=== PATIENT | female | born 1975 | race Asian ===

== ENCOUNTER 2024-06-25 12:41 | Emergency (ER) | payer BC ==
[~2024-06-25] VITALS: Ht 160 cm; Wt 65.8 kg
[2024-06-25 12:51] VITALS: PULSE 93; O2SAT 98
[2024-06-25 12:58] VITALS: BP 132/78; RESP 18; TEMP 37.1; O2SAT 98
[2024-06-25 14:38] LABS: BASOPHILS % 0.7 % (0.0-2.0); EOSINOPHILS % 2.2 % (0.0-5.0); HEMATOCRIT. 43.8 % (36.0-48.0); LYMPHOCYTES % 25.1 % (20.0-50.0); MEAN CORPUSCULAR HEMOGLOBIN 31.5 pg (28.0-32.0); MEAN CORPUSCULAR HGB CONC 34.2 g/dL (31.0-37.0); MEAN PLATELET VOLUME 7.5 fl (7.4-10.4); MONOCYTES % 7.2 % (2.0-8.0); NEUTROPHILS % 64.8 % (40.0-76.0); PLATELET 300 x1000/uL (130-400); RED BLOOD CELL COUNT 4.76 mill/uL (4.2-5.4); RED CELL DISTRIBUTION WIDTH 12.9 % (11.6-14.6); WHITE BLOOD COUNT 5.1 x1000/uL (4.5-11.0)
[2024-06-25 14:43] LABS: CHLORIDE 107 mEq/L (98-107); SODIUM 139 mEq/L (136-145)
[2024-06-25 14:44] LABS: CARBON DIOXIDE 25 mEq/L (21-32)
[2024-06-25 14:49] LABS: CREATININE 0.6 mg/dL (0.6-1.0); GLUCOSE 147 mg/dL (70-105)
[2024-06-25 14:50] LABS: UREA NITROGEN BLOOD 9 mg/dL (9-23)
[2024-06-25 14:51] LABS: ALANINE AMINOTRANSFERASE 15 IU/L (10-49); ALBUMIN 4.4 g/dL (3.2-4.8); ASPARTATE AMINOTRANSFERASE 16 IU/L (<34)
[2024-06-25 14:52] LABS: BILIRUBIN DIRECT < 0.1 mg/dL (<=3.0); BILIRUBIN TOTAL 0.4 mg/dL (0.1-1.0); PROTEIN TOTAL 7.6 g/dL (6.0-8.3)
[2024-06-25 14:57] LABS: HCG SCREEN NEGATIVE
[2024-06-25] MEDS ORDERED: IBUP-2030 MT (16:33)
== END 2024-06-25 18:50 | disposition home or self-care (01) ==
LOC: ER 12:41
DX: R10.31 Right lower quadrant pain (principal); Z98.890 Other specified postprocedural states
CPT/HCPCS: 36415; 74176; 80048; 80076; 84703; 85025; 86850; 86900; 99284